=== PATIENT | male | born 1950 | race African-American/Black ===

== ENCOUNTER 2016-05-16 15:47 | Emergency (ER) | payer OTHER ==
[~2016-05-16] VITALS: Ht 177.8 cm; Wt 77.1 kg
[2016-05-16] MEDS ORDERED: HYDR-2666 PO (17:14)
[2016-05-16] MEDS ORDERED: CYCL5TAB PO (17:14)
[2016-05-16] MEDS ORDERED: HYDROCODONE/APAP 5/325MG TABLET. PO ONE (17:15)
[2016-05-16] MEDS ORDERED: IBUPROFEN 400 MG TABLET. PO ONE (17:15)
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
[2016-05-16 17:25] VITALS: BP 150/77
== END 2016-05-16 17:38 | disposition home or self-care (01) ==
LOC: ER 15:47
DX: M54.2 Cervicalgia (principal); V49.49XA Driver injured in collision with other motor vehicles in traffic accident, initial encounter; Y93.89 Activity, other specified; Y92.89 Other specified places as the place of occurrence of the external cause; Y99.8 Other external cause status
CPT/HCPCS: 99284